=== PATIENT | female | born 1935 | race Caucasian/White ===

== ENCOUNTER 2016-10-20 19:42 | Inpatient (IN) | payer OTHER ==
[~2016-10-20] VITALS: Ht 152.4 cm; Wt 50.8 kg
[~2016-10-20 19:42] MED LIST: ADVAIR DISKUS 11 DSK IH; CARVEDILOL3.125 M1 PO; DIAZEPAM5 MG PO; ESTRACE1 MG PO; ESTRADIOL1 MG PO; FERROUS GLUCON325 MG PO; GLUCAGON EMERGEN1 MG IM; HYDROCHLOROTHIA25 MG PO; IMDUR30 MG PO; LACTULOSE10 GM/152 PO; LEVOTHYROXIN0.088 M2 PO; LISINOPRIL30 MG PO; LOSARTAN POTAS100 M1 PO; MIRTAZAPINE30 M2 PO; MOTRIN800 MG PO; NITROGLYCERIN0.4 MG SL; PHENYLEPHRINE PO; PROMETHAZINE HY25 M1 PO; PROTONIX40 MG PO; THEOPHYLLINE400 MG PO; TRAMADOL HCL50 MG PO; TRAZODONE100 MG PO; TRIMETHOPRIM100 MG PO; VENTOLIN H0.09 MG/A1 INH; VITAMIN C500 M2 PO
[2016-10-20 21:14] LABS: ALBUMIN 4.4 g/dL (3.4-5.0); ALKALINE PHOSPHATASE 113 U/L (46-116); ALT/SGPT 110 U/L (14-59); AST/SGOT 165 U/L (15-37); BILIRUBIN TOTAL 0.9 mg/dL (0.20-1.00); CALCIUM 11.5 mg/dL (8.5-10.1); CARBON DIOXIDE 31.6 mmol/L (21-32); CHLORIDE SERUM 103 mmol/L (98-107); CREATININE SERUM 2.1 mg/dL (0.6-1.0); GLUCOSE SERUM 305 mg/dL (74-106); PLATELET COUNT 103 x10^3mcL (130-400); RED CELL DISTRIBUTION WIDTH 15.8 % (11.5-14.5); SODIUM SERUM 146 mmol/L (136-145)
[2016-10-20 21:17] LABS: POTASSIUM SERUM 2.4 mmol/L (3.5-5.1)
[2016-10-20 22:05] LABS: BAND NEUTROPHIL 20 % (0-10); BASOPHIL 0 % (0-2); MONOCYTE 2 % (0-7); SEGMENTED NEUTROPHILS 70 % (37-75)
[2016-10-20 22:07] LABS: rbc morphology (normal/abnorm) ABNORMAL (NORMAL)
[2016-10-20 22:54] LABS: microscopic required? NO
[2016-10-20 22:59] LABS: T3 TOTAL 0.77 ng/mL
[2016-10-20 23:07] LABS: urine erythrocyte NEGATIVE (NEGATIVE)
[2016-10-20 23:09] LABS: CHOLESTEROL/HDL RATIO 1.7
[2016-10-20 23:13] LABS: FREE T4 1.3 ng/dL (0.76-1.46); FREE THYROXINE INDEX 3.4 ug/dL (1.4-4.5); T4(THYROXINE) 11.1 ug/dL (4.7-13.3)
[2016-10-21] VITALS (16 sets, daily range): BP systolic 63–143; BP diastolic 40–83; Ht 152.4 cm; Wt 50.8 kg
[2016-10-21 06:16] LABS: CALCIUM 9.3 mg/dL (8.5-10.1); CARBON DIOXIDE 22.5 mmol/L (21-32); CHLORIDE SERUM 113 mmol/L (98-107); CREATININE SERUM 1.9 mg/dL (0.6-1.0); GLUCOSE SERUM 77 mg/dL (74-106); PHOSPHOROUS 3.3 mg/dL (2.5-4.9); POTASSIUM SERUM 3.9 mmol/L (3.5-5.1); SODIUM SERUM 146 mmol/L (136-145)
[2016-10-21 06:53] LABS: PLATELET COUNT 84 x10^3mcL (130-400); RED CELL DISTRIBUTION WIDTH 18.2 % (11.5-14.5)
[2016-10-21 09:57] LABS: BAND NEUTROPHIL 27 % (0-10); METAMYELOCTE 1 % (0-2); MONOCYTE 1 % (0-7); MYELOCYTE 1 % (0-2); SEGMENTED NEUTROPHILS 58 % (37-75)
[2016-10-21 09:58] LABS: PLATELET MORPHOLOGY LARGE PLATELET SEEN; rbc morphology (normal/abnorm) ABNORMAL (NORMAL)
[2016-10-21 20:13] LABS: PLATELET COUNT 98 x10^3mcL (130-400); RED CELL DISTRIBUTION WIDTH 19.9 % (11.5-14.5)
[2016-10-21 21:27] LABS: BAND NEUTROPHIL 27 % (0-10); SEGMENTED NEUTROPHILS 51 % (37-75)
[2016-10-21 21:28] LABS: METAMYELOCTE 4 % (0-2); MONOCYTE 1 % (0-7)
[2016-10-21 21:30] LABS: PLATELET MORPHOLOGY PLATELETS DECREASED
[2016-10-22 01:14] VITALS: BP 92/47
[2016-10-22 03:05] VITALS: BP 93/53
[2016-10-22 03:34] VITALS: BP 97/55
[2016-10-22 05:06] VITALS: BP 75/47
[2016-10-22 05:28] LABS: BASOPHIL % 0 % (0-2); PLATELET COUNT 64 x10^3mcL (130-400); RED CELL DISTRIBUTION WIDTH 20.9 % (11.5-14.5)
[2016-10-22 05:36] LABS: CARBON DIOXIDE 13.9 mmol/L (21-32); CHLORIDE SERUM 102 mmol/L (98-107); CREATININE SERUM 3.3 mg/dL (0.6-1.0); GLUCOSE SERUM 254 mg/dL (74-106); POTASSIUM SERUM 5.4 mmol/L (3.5-5.1); SODIUM SERUM 132 mmol/L (136-145)
[2016-10-22 05:48] LABS: MAGNESIUM 4.7 mg/dL (1.8-2.4)
== END 2016-10-22 06:10 | disposition expired | DRG 853 ==
LOC: ED 19:42 → IC 21:38
PROVIDERS: Emergency Medicine; Surgery; ADMIT Family Medicine
PROC: 0D9A00Z Drainage of Jejunum with Drainage Device, Open Approach (ICD-10-PCS; 2016-10-20)
PROC: 0DNA0ZZ Release Jejunum, Open Approach (ICD-10-PCS; 2016-10-20)
PROC: 0DBA0ZZ Excision of Jejunum, Open Approach (ICD-10-PCS; principal; 2016-10-20 11:00)
PROC: 30233R1 Transfusion of Nonautologous Platelets into Peripheral Vein, Percutaneous Approach (ICD-10-PCS; 2016-10-21)
PROC: 30233N1 Transfusion of Nonautologous Red Blood Cells into Peripheral Vein, Percutaneous Approach (ICD-10-PCS; 2016-10-21)
PROC: 30233L1 Transfusion of Nonautologous Fresh Plasma into Peripheral Vein, Percutaneous Approach (ICD-10-PCS; 2016-10-21)
DX: A41.9 Sepsis, unspecified organism (principal); J69.0 Pneumonitis due to inhalation of food and vomit; K63.1 Perforation of intestine (nontraumatic); N17.0 Acute kidney failure with tubular necrosis; K85.90 Acute pancreatitis without necrosis or infection, unspecified; R65.21 Severe sepsis with septic shock; J96.00 Acute respiratory failure, unspecified whether with hypoxia or hypercapnia; K56.5 Intestinal adhesions [bands] with obstruction (postinfection); E87.0 Hyperosmolality and hypernatremia; E72.20 Disorder of urea cycle metabolism, unspecified; D46.9 Myelodysplastic syndrome, unspecified; K72.90 Hepatic failure, unspecified without coma; D69.59 Other secondary thrombocytopenia; E87.6 Hypokalemia; E78.5 Hyperlipidemia, unspecified; E83.41 Hypermagnesemia; Z66 Do not resuscitate; Z68.22 Body mass index [BMI] 22.0-22.9, adult
CPT/HCPCS: 36556; 36600; 82962; 83880; 84439; 85060; 87046; 87046-59; A4628; C9113; J0330; J1265; J1642; J1720; J1885; J1940; J1956; J2370; J2405; J2543; J2704; J3010; J3480; J3490; J7030; J7040; J7042; J7050; J7120; J7131; J7620; P9016; P9035; P9047; P9059; Q0092